=== PATIENT | female | born 1980 | race Caucasian/White ===

== ENCOUNTER 2016-11-19 08:26 | Emergency (ER) | payer OTHER ==
[~2016-11-19] VITALS: Ht 160 cm; Wt 58.4 kg
[~2016-11-19 08:26] MED LIST: IRON PO; MTR600X PO; PRENTAB26 PO; [UNRECOGNIZED DRUG - OTHER] PO
[2016-11-19 08:33] VITALS: TEMP 36.7; Ht 160 cm; Wt 58.4 kg
[2016-11-19] MEDS ORDERED: DEXAMETHASONE SOD INJ 10 MG/ML VIAL IM STA (08:54)
[2016-11-19] MEDS ORDERED: KETOROLAC TROMETHAMINE 60 MG/2 ML VIAL IM STA (08:54)
--- NOTE | 2016-11-19 08:58 | EMERGENCY ROOM VISIT NOTE ---
History Report prepared by Eitan: Kaur Dixon Under the Supervision of: Dr. Ken Lal M.D. First contact with patient: 08:45 Chief Complaint: SORETHROAT Stated Complaint: STREP THROAT History of Present Illness The patient is a 36 year old female who presents to the Emergency Room with complaints of a persistent, worsening sore throat that began five days ago. She currently rates her discomfort as a 7/10 in severity. The patient states that on she developed a sore throat and additionally notes that she has had a fever and body aches on and Saturday. She states that her body aches and fever have subsided, but her sore throat has been worsening. The patient notes that she has had difficulty swallowing and notes pain with swallowing. She associates a loss of appetite and a decrease in fluid intake. The patient states that she has taken Tylenol for her symptoms without relief. She denies any tobacco use. The patient notes a history of gestational diabetes that has resolved. 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 Source of History: patient Onset: 5 days ago Position: throat Symptom Intensity: 7/10 Quality: other (sore) Timing: worsening, other (persistent) Associated Symptoms: + fevers Note: Associated symptoms: body aches, loss of appetite, pain with swallowing, difficulty swallowing, decrease in fluid intake. Review of Systems See HPI for pertinent positives & negatives. A total of 10 systems reviewed and were otherwise negative. Past Medical & Surgical Medical Problems: (1) Gestational diabetes Surgical Problems: (1) Previous section Family History Patient reports no known family medical history. Social History Smoking Status: Never Smoker Smokeless Tobacco Use: No Alcohol Use: none Marital Status: Housing Status: lives with family Occupation Status: employed Current/Historical Medications Scheduled Amoxicillin (Amoxil), 10 ML PO TID Scheduled PRN Hydrocodone W/ Homatropine (Hycodan 5/1.5MG 5 Ml), 5 ML PO HS PRN for Pain Allergies Coded Allergies: No Known Allergies (Unverified , 11/19/16) Physical Exam Vital Signs Date Time Temp Pulse Resp B/P Pulse Ox O2 Delivery O2 Flow Rate FiO2 11/19/16 09:31 85 18 98/63 96 11/19/16 08:33 36.7 88 18 113/66 100 Room Air Physical Exam GENERAL: Patient is a healthy-appearing well-nourished HEAD: Normocephalic atraumatic EYES: Ocular movements intact pupils equal and react to light OROPHARYNX Pus plaques bilaterally on tonsils, able to swallow own saliva. NECK: Supple no nuchal rigidity, no stridor on exam. CHEST: Good equal expansion LUNGS: Clear and equal to auscultation CARDIAC: Normal S1 and S2 ABDOMEN: Soft nontender no guarding BACK: No CVA tenderness EXTREMITIES: No pain upon palpation normal muscle strength in all groups no clubbing cyanosis or edema NEURO: Patient is following commands is answering questions appropriately. Alert and oriented x3 Cranial Nerves 2-12 grossly intact Medical Decision & Procedures Medications Administered Medications (Trade) Dose Ordered Sig/Anders Route Start Time Stop Time Status Last Admin Dose Admin Dexamethasone Sodium Phosphate (Decadron Inj) 10 mg NOW STAT IM 11/19/16 08:54 11/19/16 08:59 DC 11/19/16 09:08 10 MG Ketorolac Tromethamine (Toradol Inj) 60 mg NOW STAT IM 11/19/16 08:54 11/19/16 08:59 DC 11/19/16 09:07 60 MG Amoxicillin (Amoxicillin Susp) 500 mg NOW STAT PO 11/19/16 08:59 11/19/16 09:00 DC 11/19/16 08:59 500 MG ED Course 0846: Past medical records reviewed. The patient was evaluated in room B4B. A complete history and physical examination was performed. I discussed the exam findings with the patient and I discussed the treatment plan. She verbalized complete understanding and agreement. She is ready to go home shortly. 0854: Ordered Toradol Inj 60 mg IM, Decadron Inj 10 mg IM. 0859: Ordered Amoxicillin 500 mg PO. Medical Decision Differential diagnosis: Etiologies such as viral syndrome, tonsillitis, streptococcal pharyngitis, mononucleosis, peritonsillar abscess, retropharyngeal abscess, otitis, pneumonia , influenza, as well as others were entertained. This is a 36-year-old female who presents emergency department complaining of severe sore throat. I will note that the patient is able swallow her own saliva. She does have what appears to be pus pockets present on her tonsils however has no evidence of abscess. The patient is able to swallow her own saliva and has no evidence of stridor. She was given Decadron in the [facility] department along with Toradol. So she will be started on amoxicillin pending culture results. Patient was in agreement with the treatment plan. Impression Primary Impression: Pharyngitis Scribe Attestation The scribe's documentation has been prepared under my direction and personally reviewed by me in its entirety. I confirm that the note above accurately reflects all work, treatment, procedures, and medical decision making performed by me. Departure Information Dispostion Home / Self-Care Prescriptions Hydrocodone W/ Homatropine (HYCODAN 5/1.5MG 5 ML) 1 Syp Syp 5 ML PO HS Y for Pain, #120 ML Prov: Ken Lal MD 11/19/16 Amoxicillin (AMOXIL) 250 Mg/5 Ml Susp 10 ML PO TID for 10 Days, #300 ML Prov: Ken Lal MD 11/19/16 Referrals No Doctor, Assigned (PCP) Forms HOME CARE DOCUMENTATION FORM, IMPORTANT VISIT INFORMATION, School Instructions, Work Instructions Patient Instructions ED Pharyngitis Viral Report Pending, ED Strep Pharyngitis Poss, My [facility] Additional Instructions You received narcotic or benzodiazepene medication while in the emergency room today. Do not drive, operate heavy machinery, or drink alcohol under the influence of this medication. Take Naproxyn as directed Take Hycodan for breakthrough pain Culture results are usually available in approx 48 hours You have been examined and treated today on an emergency basis only. This is not a substitute for, or an effort to provide, complete comprehensive medical care. It is impossible to recognize and treat all injuries or illnesses in a single emergency department visit. It is therefore important that you follow up closely with your PCP. Call as soon as possible for an appointment. Thank you for your time and consideration. I look forward to speaking with you again soon. Please don't hesitate to call us if you have any questions. Problem Qualifiers Primary Impression: Pharyngitis Pharyngitis/tonsillitis etiology: unspecified etiology Qualified Codes: J02.9 - Acute pharyngitis, unspecified
[2016-11-19] MEDS ORDERED: AMOXICILLIN 500 MG/10 ML UDP PO STA (08:59)
[2016-11-19] MEDS ORDERED: AMOX250S5 PO (09:01)
[2016-11-19] MEDS ORDERED: HYDR5SYP11 PO (09:02)
[2016-11-19 09:31] VITALS: BP 98/63; PULSE 85; O2SAT 96
== END 2016-11-19 09:32 | disposition home or self-care (01) ==
LOC: C.EDB 08:29
DX: J02.9 Acute pharyngitis, unspecified (principal)

== ENCOUNTER 2017-01-11 17:30 | Emergency (ER) | payer OTHER ==
[~2017-01-11] VITALS: Ht 162.6 cm; Wt 59.0 kg
[2017-01-11 17:39] VITALS: BP 98/52; PULSE 85; TEMP 37; O2SAT 100; Ht 162.6 cm; Wt 59.0 kg
--- NOTE | 2017-01-11 23:54 | EMERGENCY ROOM VISIT NOTE ---
ED Visit Note First contact with patient: 17:53 CHIEF COMPLAINT: Sore throat HISTORY OF PRESENT ILLNESS: This 36-year-old female patient presents to the emergency department complaining of increasing pain in the throat, gradual in onset, worse with swallowing for the past one day. They rate the pain as sharp and 5/10. They are able to swallow. The patient has not had a fever. No rash. Denies any posterior neck pain or stiffness. No difficulty breathing. Symptoms came on gradually. There has been no chest pain, no abdominal pain, no nausea or vomiting. Patient denies any cough, rhinorrhea, congestion, or ear pain. The patient has taken nothing for their symptoms. REVIEW OF SYSTEMS: A 6 system review of systems was completed with pertinent positives and negatives in the HPI. ALLERGIES: No known allergies MEDICATIONS: No chronic medications PMH: Otherwise healthy SOCIAL HISTORY: Lives locally PHYSICAL EXAM: Vital Signs: Reviewed Nurse's notes. GENERAL: Female, in no acute distress, non toxic in appearance, well developed, well nourished. MENTAL STATUS: Alert and oriented to person place and time. SKIN: Clear and dry, no eruptions, or rashes. No cyanosis, no petechiae. EARS: External auditory canals clear, tympanic membrane pearly mcgowan without erythema or effusion bilaterally. EYES: Pupils equal round and reactive to light and accommodation. Conjunctivae without injection, sclerae without icterus. Extraocular movements intact. NOSE: Patent, turbinates inflammed with no discharge. No sinus tenderness. MOUTH: Mucous membranes moist. Tonsils are not enlarged, however there is erythema and scant exudate. The Pharynx is inflamed and slightly swollen. Pharynx without postnasal drip. Uvula is midline and no abscess is seen. NECK: Supple without nuchal rigidity. Anterior cervical lymphadenopathy without posterior cervical, or auricular, or submandibular lymphadenopathy. HEART: Regular rate and rhythm without murmurs gallops or rubs. LUNGS: Clear to auscultation bilaterally without wheezes, rales or rhonchi. ABDOMEN: Positive bowel sounds x 4. Normal tympanic percussion. Soft, nontender, without masses or organomegaly. ED COURSE: I examined the patient. A rapid strep test was negative. A backup culture was sent. The patient was instructed on the plan below and was discharged home in good condition. Problem List Medical Problems: (1) Gestational diabetes Status: Resolved Surgical Problems: (1) Previous section Status: Resolved Current/Historical Medications No Active Prescriptions or Reported Meds Allergies Coded Allergies: No Known Allergies (Unverified , 01/11/17) Vital Signs Date Time Temp Pulse Resp B/P (MAP) Pulse Ox O2 Delivery O2 Flow Rate FiO2 01/11/17 17:39 37.0 85 20 98/52 100 Room Air Departure Information Impression Primary Impression: Pharyngitis, acute Dispostion Home / Self-Care Condition FAIR Prescriptions No Active Prescriptions or Reported Meds Forms HOME CARE DOCUMENTATION FORM, IMPORTANT VISIT INFORMATION Patient Instructions My [facility] Additional Instructions You were seen and evaluated today on an emergency basis only. This is not a substitute for, or an effort to provide, complete comprehensive medical care. It is not possible to recognize and treat all injuries or illnesses in a single emergency department visit. For this reason it is recommended that you followup with your primary care physician with any ongoing or persistent symptoms. For baseline pain relief you may alternate ibuprofen and acetaminophen every 4 hours for pain control. Take 600 mg ibuprofen (Advil) and then 4 hours later take 1000 mg acetaminophen (Tylenol). Do not take more than 3000 mg acetaminophen in a single day. You are welcome to return to the emergency department anytime with new, worsening, or concerning symptoms.
== END 2017-01-11 19:06 | disposition home or self-care (01) ==
LOC: C.EDB 17:31 → C.EDD 19:06
DX: J02.9 Acute pharyngitis, unspecified (principal)

== ENCOUNTER 2017-02-14 13:17 | Emergency (ER) | payer OTHER ==
[~2017-02-14] VITALS: Ht 162.6 cm; Wt 58.6 kg
[2017-02-14 13:26] VITALS: BP 96/65; TEMP 37.2; Ht 162.6 cm; Wt 58.6 kg
[2017-02-14 14:35] LABS: URINE APPEARANCE CLEAR (CLEAR); URINE BILIRUBIN NEG (NEG); URINE COLOR YELLOW; URINE NITRITE NEG (NEG); URINE PH 7.5 (4.5-7.5); URINE SPECIFIC GRAVITY 1.003 (1.000-1.030); UROBILINOGEN NEG (NEG); ZZUR CULT IF INDIC CLEAN CATCH NO
[2017-02-14 14:41] LABS: MANUAL MICROSCOPIC REQUIRED? YES; REVIEW REQ? NO
[2017-02-14 15:01] LABS: URINE BACTERIA NEG (NEG); URINE RBC 0-4 /hpf (0-4); URINE WBC 0 /hpf (0-5)
--- NOTE | 2017-02-14 15:05 | EMERGENCY ROOM VISIT NOTE ---
ED Visit Note First contact with patient: 13:33 CHIEF COMPLAINT: Frequent and painful urination HISTORY OF PRESENT ILLNESS: This 36-year-old female presents to the emergency department ambulatory complaining of increased frequency of urination, burning pain with urination, and a feeling of incomplete voiding for the last 4 days. The patient passes very small volumes of urine with each episode of voiding. The patient does not have abdominal pain. They deny back pain, fever, or vaginal discharge. The patient has not frequent urinary tract infections in the past. The patient does not have history of diabetes, HTN, or urinary tract system dysfunction. Patient feels they are not at risk for STIs. REVIEW OF SYSTEMS: A 6 system review of systems was completed with positives and pertinent negatives listed in the HPI. ALLERGIES: No known drug allergies MEDICATIONS: None PMH: None SOCIAL HISTORY: The patient lives locally with family PHYSICAL EXAM: Vital Signs: Reviewed Nurse's notes, vital signs stable. GENERAL : This is a 36-year-old female, in no acute distress, they do not appear toxic, well-developed, well-nourished. ABDOMEN: Positive bowel sounds x 4. The abdomen is soft, mildly tender in the suprapubic area, but no masses or organs are felt. There is no CVA tenderness. The skin is clear. NEURO: Alert and oriented to person place and time. EMERGENCY DEPARTMENT COURSE: I examined the patient. The patient complains of dysuria, urgency, frequency. The patient states she thought she noticed blood in her urine. She is certain it is not vaginal in nature. She states she is not sexually active and does not believe this could be a sexually transmitted infection. She does not have any significant back pain or pain at all to suggest kidney stone. Her urinalysis does not reveal any obvious infection but given her symptoms, I will treat her with Bactrim and Pyridium. She was encouraged to return in 24-48 hours if the symptoms are not improving. She should return sooner with worsening symptoms. The patient was discharged home in good condition. Test 02/14/17 14:00 Urine Color YELLOW Urine Appearance CLEAR (CLEAR) Urine pH 7.5 (4.5-7.5) Urine Specific [place] 1.003 (1.000-1.030) Urine Protein NEG (NEG) Urine Glucose (UA) NEG (NEG) Urine Ketones NEG (NEG) Urine Occult Blood TRACE (NEG) Urine Nitrite NEG (NEG) Urine Bilirubin NEG (NEG) Urine Urobilinogen NEG (NEG) Urine Leukocyte Esterase NEG (NEG) Urine WBC (Auto) /hpf (0-5) Urine RBC (Auto) /hpf (0-4) Urine Hyaline Casts (Auto) /lpf (0-5) Urine Epithelial Cells (Auto) /lpf (0-5) Urine Bacteria (Auto) (NEG) Urine RBC 0-4 /hpf (0-4) Urine WBC 0 /hpf (0-5) Urine Epithelial Cells 0-5 /lpf (0-5) Urine Bacteria NEG (NEG) Urine Test NEG (NEG) Problem List Medical Problems: (1) Gestational diabetes Status: Resolved Surgical Problems: (1) Previous section Status: Resolved Current/Historical Medications Scheduled Phenazopyridine HCl (Pyridium), 200 MG PO TID Sulfa/Trimethoprim (Bactrim Ds 800MG/160MG), 1 TAB PO BID Allergies Coded Allergies: No Known Allergies (Unverified , 02/14/17) Vital Signs Date Time Temp Pulse Resp B/P (MAP) Pulse Ox O2 Delivery O2 Flow Rate FiO2 02/14/17 15:16 78 18 99 02/14/17 13:26 37.2 83 16 96/65 98 Room Air Laboratory Results Test 02/14/17 14:00 Urine Color YELLOW Urine Appearance CLEAR (CLEAR) Urine pH 7.5 (4.5-7.5) Urine Specific [place] 1.003 (1.000-1.030) Urine Protein NEG (NEG) Urine Glucose (UA) NEG (NEG) Urine Ketones NEG (NEG) Urine Occult Blood TRACE (NEG) Urine Nitrite NEG (NEG) Urine Bilirubin NEG (NEG) Urine Urobilinogen NEG (NEG) Urine Leukocyte Esterase NEG (NEG) Urine WBC (Auto) /hpf (0-5) Urine RBC (Auto) /hpf (0-4) Urine Hyaline Casts (Auto) /lpf (0-5) Urine Epithelial Cells (Auto) /lpf (0-5) Urine Bacteria (Auto) (NEG) Urine RBC 0-4 /hpf (0-4) Urine WBC 0 /hpf (0-5) Urine Epithelial Cells 0-5 /lpf (0-5) Urine Bacteria NEG (NEG) Urine Test NEG (NEG) Departure Information Impression Primary Impression: Dysuria Dispostion Home / Self-Care Condition GOOD Prescriptions Phenazopyridine HCl (Pyridium) 200 Mg Tab 200 MG PO TID for 3 Days, #9 TAB Prov: Kaur Wilkerson PA-C 02/14/17 Sulfa/Trimethoprim (Bactrim Ds 800MG/160MG) Tab 1 TAB PO BID for 5 Days, #10 TAB Prov: Kaur Wilkerson PA-C 02/14/17 Referrals No Doctor, Assigned (PCP) Patient Instructions Dysuria, My [facility] Additional Instructions Bactrim every 12 hours for 5 days Pyridium if needed for burning, urinary frequency and discomfort. It will turn your urine bright orange. Return with any fevers, worsening pain, worsening symptoms Otherwise, recheck with your family doctor next week if symptoms persist
[2017-02-14] MEDS ORDERED: PHEN-876 PO (15:10)
[2017-02-14] MEDS ORDERED: SULF800T23 PO (15:10)
[2017-02-14 15:16] VITALS: PULSE 78; O2SAT 99
== END 2017-02-14 15:18 | disposition home or self-care (01) ==
LOC: C.EDB 13:18 → C.EDD 15:18
DX: R30.0 Dysuria (principal)